=== PATIENT | female | born 1955 | race Caucasian/White ===

== ENCOUNTER 2020-08-17 11:59 | Emergency (ER) | payer MEDICARE, OTHER ==
[~2020-08-17] VITALS: Ht 165.1 cm; Wt 81.7 kg
[2020-08-17] MEDS ORDERED: ONDANSETRON ODT4 MG PO (12:18)
[2020-08-17] MEDS ORDERED: LEVOTHYROXINE112 MCG PO (12:18)
[2020-08-17] MEDS ORDERED: OMEPRAZOLE20 MG PO (12:18)
[2020-08-17] MEDS ORDERED: CLOBETASOL PROP15 GM TOP (12:18)
[2020-08-17] MEDS ORDERED: BUSPIRONE HCL10 MG PO (12:19)
[2020-08-17] MEDS ORDERED: TRAMADOL HCL50 MG PO (12:19)
[2020-08-17] MEDS ORDERED: VENLAFAXINE HCL75 MG PO (12:22)
[2020-08-17] MEDS ORDERED: TRAZODONE HCL50 MG PO (12:22)
[2020-08-17] MEDS ORDERED: BREO ELLIPTA 21 EACH IH (12:23)
[2020-08-17] MEDS ORDERED: INCRUSE ELLI62.5 MCG INH (12:24)
[2020-08-17] MEDS ORDERED: METOPROLOL SUCC50 MG PO (12:25)
[2020-08-17] MEDS ORDERED: TOPROL XL50 MG PO (12:25)
== END 2020-08-18 01:05 | disposition short-term general hospital (02) ==
LOC: ED 11:59
DX: R20.2 Paresthesia of skin (principal); R53.1 Weakness; J44.9 Chronic obstructive pulmonary disease, unspecified; K21.9 Gastro-esophageal reflux disease without esophagitis; E03.9 Hypothyroidism, unspecified; G47.00 Insomnia, unspecified; E66.9 Obesity, unspecified; F17.200 Nicotine dependence, unspecified, uncomplicated; Z88.2 Allergy status to sulfonamides; Z88.8 Allergy status to other drugs, medicaments and biological substances; Z79.899 Other long term (current) drug therapy
CPT/HCPCS: 70450; 72158; 80053; 82550; 83735; 85025; 85651; 99285-25; A9577; J2060; J2405; J7040

== ENCOUNTER 2021-04-09 12:04 | Emergency (ER) | payer MEDICARE, OTHER ==
[~2021-04-09] VITALS: Ht 165.1 cm; Wt 68.0 kg
[~2021-04-09 12:04] MED LIST: BREO ELLIPTA 21 EACH IH; BUSPIRONE HCL10 MG PO; CLOBETASOL PROP15 GM TOP; INCRUSE ELLI62.5 MCG INH; LEVOTHYROXINE112 MCG PO; METOPROLOL SUCC50 MG PO; OMEPRAZOLE20 MG PO; ONDANSETRON ODT4 MG PO; TOPROL XL50 MG PO; TRAMADOL HCL50 MG PO; TRAZODONE HCL50 MG PO; VENLAFAXINE HCL75 MG PO
== END 2021-04-09 17:05 | disposition home or self-care (01) ==
LOC: ED 12:04
DX: R11.2 Nausea with vomiting, unspecified (principal); J44.9 Chronic obstructive pulmonary disease, unspecified; K21.9 Gastro-esophageal reflux disease without esophagitis; E03.9 Hypothyroidism, unspecified; E66.9 Obesity, unspecified; F17.200 Nicotine dependence, unspecified, uncomplicated; Z88.2 Allergy status to sulfonamides; Z88.5 Allergy status to narcotic agent; Z79.899 Other long term (current) drug therapy
CPT/HCPCS: 80053; 80500; 81001; 83690; 83735; 85025; 96374; 96375; 96376; 99284-25; J2405; J2765; J7030; J7040

== ENCOUNTER 2021-07-20 12:51 | Inpatient (IN) | payer MEDICARE, OTHER ==
[~2021-07-20] VITALS: Ht 165.1 cm; Wt 55.2 kg
[~2021-07-20 12:51] MED LIST changes: -BREO ELLIPTA 21 EACH IH; +BREO ELLIPTA 21 EACH INH
--- OUTSIDE RECORDS SUMMARY | 2021-07-20 12:54 | XMS ---
PreManage Notification: BELLA EVASN Security Lockstitch Waistline Joiner Events No recent Security Events currently on file CRITERIA MET - [facility] - 3 Facilities in 90 Days - 6 ED Visits in 6 Months - [facility] - 2 Visits in 30 Days CARE PROVIDERS There are no care providers on record at this time. Marie has no Care Guidelines for this patient. EBrody VISIT COUNT (12 MO.) [address] [facility] TOTAL 7 NOTE: Visits indicate total known visits. ED/UCC VISIT TRACKING (12 MO.) 07/20/2021 12:[address] [facility] [place] TYPE: Emergency COMPLAINT: - UNABLE TO EAT/DRINK, N/V/D 07/17/2021 14:23 [facility] [place] TYPE: Emergency DIAGNOSES: - Essential (primary) hypertension - Dizziness and giddiness - Nausea - DIZZY 04/27/2021 15:44 [facility] TYPE: Emergency DIAGNOSES: - Chronic inflammatory demyelinating polyneuritis - Neurologic Problem - Fall 04/17/2021 12:30 [facility] [place] TYPE: Emergency DIAGNOSES: - Other visual disturbances - FAILURE TO THRIVE - Nausea with vomiting, unspecified 04/13/2021 09:59 [facility] [place] TYPE: Emergency DIAGNOSES: - Nausea with vomiting, unspecified - VOMITING DIZZY NOT EATING OR DRINKING 04/09/2021 12:06 [facility] [place] TYPE: Emergency COMPLAINT: - N/V, UNABLE TO EAT/DRINK DIAGNOSES: - Nausea with vomiting, unspecified - Other [place] [facility] ([facility] drug therapy - Allergy status to sulfonamides - Obesity, unspecified - Nicotine dependence, unspecified, uncomplicated - Allergy status to narcotic agent - Hypothyroidism, unspecified - Chronic obstructive pulmonary disease, unspecified - Gastro-esophageal reflux disease without esophagitis 08/17/2020 12:00 [facility] [place] TYPE: Emergency COMPLAINT: - ARMS/LEGS NUMBNESS DIAGNOSES: - Paresthesia of skin - Obesity, unspecified - Hypothyroidism, unspecified - Anesthesia of skin - Allergy status to other drugs, medicaments and biological substances - Gastro-esophageal reflux disease without esophagitis - Other [place] [facility] [place]current[facility] drug therapy - Insomnia, unspecified - Nicotine dependence, unspecified, uncomplicated - Chronic obstructive pulmonary disease, unspecified - Weakness - Allergy status to sulfonamides INPATIENT VISIT TRACKING (12 MO.) 08/18/2020 02:55 [facility] TYPE: Internal Medicine DIAGNOSES: - Personal history of other infectious and parasitic diseases - Anesthesia of skin - r/o guillian barre syndrome - Abnormal reflex - Guillain-[place] syndrome - Paresthesia of skin [email or web address]
[2021-07-20] MEDS ORDERED: LISINOPRIL10 MG PO (18:03)
[2021-07-20] MEDS ORDERED: VENLAFAXINE HCL75 M1 PO (18:03)
[2021-07-20] MEDS ORDERED: ONDANSETRON ODT4 MG SL (18:10)
--- NOTE | 2021-07-20 18:30 | NUR ---
REPORT RECEIVED FROM NIGHT RN AND PT. ARRIVED VIA STRETCHER. PT. IS ALERT AND DENIES PAIN AT THIS TIME. IV SITE WNL. PT. HAS FLAT AFFECT AND APPEARS CONFUSED WITH QUESTIONS AT TIMES. INTAKE COMPLETED ACCEPT FOR ASSESSMENT. MEDS ADMIN AND SAFETY DISCUSSED WITH PT. SHE WAS ASSISTED WITH CALLING HER FAMILY. LEFT RESTING WITH CALL LIGHT IN REACH.
[2021-07-20] MEDS ORDERED: VENTOLIN HFA18 GM INH (19:17)
[2021-07-20] MEDS ORDERED: SPIRIVA18 MCG INH (19:18)
[2021-07-20] MEDS ORDERED: PULMICORT0.5 MG/2 M (19:19)
[2021-07-20] MEDS ORDERED: PULMICORT0.5 MG/2 M INH (19:20)
[2021-07-20] MEDS ORDERED: IPRAT-ALBUT 0.5-3 ML INH (19:22)
--- NOTE | 2021-07-20 19:26 | NUR ---
medications reconciled using pharmacy records, PCP notes and patient interview. Patient has not been taking any meds due to dizziness/weakness and extreme cost of inhalers prescribed
--- NOTE | 2021-07-20 19:30 | NUR ---
SHIFT REPORT RECEIVED FROM CRISTINA HERNANDEZ. PT RESTING IN BED, SLEEPING. NO NEEDS AT THIS TIME. CALL LIGHT IN REACH.
--- NOTE | 2021-07-20 19:44 | NUR ---
RECEIVED CALL FROM DAUGHTER, EBEN TALBOT . GAVE UPDATE. SHE REQUESTS CONTACT FROM CASE MANAGEMENT ROLANDA TO MAKE ARRANGEMENTS FOR PT RELEASE SHE IS CONCERNED THAT THE PT MAY BE SENT HOME AND CANNOT CARE FOR HERSELF. MESSAGE LEFT ON CASEWORK PHONE.
--- NOTE | 2021-07-20 20:20 | NUR ---
IN TO ASSIST PT TO THE BSC, HEAVY 1PA PIVOT, PT NOTES DIZZYNESS WITH AMBULATION, VS AND I&Os COMPLETE, ICE WATER AND COFFEE PROVIDED TO PT, BED ALARM IS SET, NO FURTHER NEEDS AT THIS TIME
--- NOTE | 2021-07-20 21:00 | NUR ---
ASSESSMENT COMPLETED. PT CONFUSED. ORIENTED TO PERSON, PLACE, TIME. LUNGS CLEAR IN UPPER LOBES AND DIM IN LOWER LOBES. HEART TONES REGULAR. ABD SOFT, NONTENDER, BOWEL TONES ACTIVE. PT REPORTS NUMBNESS AND TINGLING IN HANDS AND FEET, PULSES INTACT. SKIN HAS SCATTERED BRUISING. SCHEDULED MED PROVIDED. PT HAS GREAT DIFFICULTY SWALLOWING PILLS, PT OFFERED OPTIONS FOR TAKING PILLS AND SHE STATES IT MAKES NO DIFFERENCE, EVALUATION REQUESTED IN [facility]. ICE WATER AND COFFEE PROVIDED, DRINKS WITHOUT ISSUE. NO OTHER NEEDS AT THIS TIME. CALL LIGHT IN REACH.
--- NOTE | 2021-07-20 23:14 | NUR ---
PT CALLS TO USE BSC. PROVIDED WITH FWW, 1PA. PT UNSTEADY. NO OTHER NEEDS. CALL LIGHT IN REACH.
--- NOTE | 2021-07-20 23:28 | NUR ---
PT REPORTS HEARTBURN , PRN MED PROVIDED. PT REQUESTS NICOTINE PATCH STAY ON TONIGHT. NO OTHER NEEDS. CALL LIGHT IN REACH.
--- NOTE | 2021-07-21 00:13 | NUR ---
PT RESTING IN BED, EYES CLOSED. RR EVEN, UNLABORED. BED ALARM ON, CALL LIGHT IN REACH.
--- NOTE | 2021-07-21 02:00 | NUR ---
ASSESSMENT, VS AND I&O COMPLETED. PT CONFUSED AND FORGETFUL. UP TO BSC AND BACK TO BED, 1PA FWW. LUNGS CLEAR IN ALL LOBES AND DIM IN LOWER LOBES. PT IS WEAK WITH TRANSFERS. IVs WNL, IV FLUIDS INFUSING PER ORDER. TEA PROVIDED. NO OTHER NEEDS. BED ALARM ON, CALL LIGHT IN REACH.
--- NOTE | 2021-07-21 02:15 | NUR ---
IN TO ASSIST PT TO THE BSC, HEAVY 1PA PIVOT, PT BACK TO BED, NO FURTHER NEEDS
--- NOTE | 2021-07-21 03:50 | NUR ---
IN TO ASSIST PT WITH COMMODE NEEDS, 1PA PIVOT, BACK TO BED, ADDED HOT WATER TO TO PTs TEA, NO FURTHER NEEDS AT THIS TIME
--- NOTE | 2021-07-21 04:56 | NUR ---
PT CALLS TO USE BSC, 1PA FWW, PROVIDED. VS AND I&O COMPLETED. NO OTHER NEEDS AT THIS TIME. CALL LIGHT IN REACH.
--- NOTE | 2021-07-21 05:40 | NUR ---
SCHEDULED MED PROVIDED. PT REPORTS 6/10 BACK AND LEGS ACHE, PRN PAIN MED PROVIDED. PT SWALLOWED CUT PILLS WELL WITH WATER. NO OTHER NEEDS. CALL LIGHT IN REACH.
--- NOTE | 2021-07-21 08:15 | NUR ---
REPORT RECEIVED FROM NIGHT RN AND PT. CARE RESUMED. PT. IS ALERT AND ORIENTED TO ALL. SHE REPORTS FEELING LESS CONFUSED. LFA IV REDDENED AND SLUGGISH TO FLUSH. REMOVED IV WNL. RAC IV WNL AND S.L. PT. REPORTS TOLERABLE BACK PAIN. PT. ASSISTED WITH AMBULATING WITH FWW TO THE COMMODE BUT COULD NOT VOID. ASSISTED BACK TO BED. DISCUSSED MEDS, SAFETY AND POC. LEFT RESTING WITH CALL LIGHT IN REACH.
--- NOTE | 2021-07-21 09:20 | NUR ---
ORTHOSTATIC VITALS COMPLETED AND PT. TOLERATED WELL. LEFT RESTING WITH CALL LIGHT IN REACH.
--- NOTE | 2021-07-21 09:58 | NUR ---
RECOCAMPO FROM ER STATING PATINETS DAUGHTER WOULD LIKE A CALL TO DISCUSS PLACEMENT OF THE PATIENT AT DISCHARGE. LM YI TREADWELL [phone].
--- NOTE | 2021-07-21 10:00 | NUR ---
RECVD CALL BACK FROM PATIENT PANCHO LOMAX RESIDES IN [place]. EBEN STATES THAT HER AND HER SIBLINGS ARE CONCERNED WITH THE PATIENT ABILITY TO RETURN TO HER HOME SAFELY AT THIS TIME. EBEN STATES THATS SINCE THE PATIENT NEUROLOGICAL ISSUES AROUSE THEY HAVE BEEN CONCERED ABOUT THE PATIENT ABILITY TO CARE FOR HERSELF. EBEN STATES THAT HER MOM HAS RECENTLY NOT BEEN EATING OR BEEN ABLE TO GET UP TO THE RESTROOM. EBEN STATES THEY HAVE DISCUSS PLCEMENT OR IN HOME CAREGIVING WITH THE PATIENT ON SEVERAL OCCASIONS, BUT THE PATIENT HAS DECLINE. THE PATIENT HAS AN UPCOMING APPOINTMENT AT THE [facility] STARTING ON 08/05/21 FOR FURTHER ASSESSMENT OF HER NEUROLICAL ISSUES. DISCUSSED WITH EBEN THAT THE PATIENT WILL BE EVALUATED BY MYSELF, PT AND OT TODAY TO DETERMINE HER LEVEL OF NEEDS. OPTIONS FOR PLACEMENT DICUSSED WHICH WILL BE DEPENDENT ON THE PATIENT ASSESSMENTS. I ALSO ADVISED EBEN THAT IT IS ULTIMATELY THE PATIENT DECISION TO ACCEPTING PLACEMENT OR DISCHARGING HOME. EBEN STATES THE FAMILY IS AWARE OF THIS, BUT STILL FEEL SHE IS UNSAFE AT HOME ALONE. PATIENT DAUGHTER KIRAN HAS ALSO OFFERED THAT THE PATIENT COME LIVE WITH HER IN [place], BUT THAT WAS ALSO DECLINED. I ADVISED EBEN THAT ONCE THE PATIENT HAS BEEN EVALUATED BY MYSELF AND PT/OT I WILL UPDATE HER.
--- NOTE | 2021-07-21 10:19 | NUR ---
PT. ASSISTED FROM BED TO THE CHAIR WITH FWW AND TOLERATED WELL. BROUGHT COFFEE AND BLANKETS. LEFT RESTING WITH CALL LIGHT IN REACH.
--- NOTE | 2021-07-21 10:20 | NUR ---
INTO TO ROOM TO ASSESS PATIENT. PATIENT SITTING UP IN CHAIR WATCHING TV. PATIENT STATES SHE LIVES ALONE IN [place], BUT DOES HAVE 3 DOGS. PATIENT STATES PRIOR TO HER RECENT EPISODE OF NUMBNESS IN HER FEET, HANDS AND FACE SHE WAS ABLE TO WALK WITH HER 4WWW. PATIENT STATES THAT AT ONE TIME SHE WAS ABLE TO AMBULATE WITH A CANE. PATIENT ADVISES ME THAT SHE HAS AN APPOINMENT WITH THE [facility] ER AND HOPING TO GET A CLEAR DIAGNOSIS. PATIENT STATES HER DAUGHTER EBEN LIVES IN [place], DAUGHTER KIRAN LIVE IN [place] AND SON SANJU LIVES IN [facility].PATIENT STATES SHE IS NORMALLY ABLE TO PREPARE FOOD FOR HERSELF, BUT DOES HAVE FRIEND WHO BRING HER FOOD WHEN SHE IS UNABLE. PATIENT ANSWERS THAT IF SHE WERE TO DISCHARGE TODAY SHE WOULD NOT FEEL SAFE ALONE AT HOME, BUT FEELS HER DAUGHTER KIRAN WOULD FLY UP TO STAY WITH HER. APPROCHED THE PATIENT ABOUT FUTURE PLACEMENT IF NEEDED, PATIENT ADVISES SHE IS ANXIOUS ABOUT MAKING HER TRIP TO THE [facility] ER AT THIS TIME. WILL ALLOW FOR PT/OT EVALUATIONS THEN WILL DISCUSS FURTHER DISCHARGE PLANNING NEEDS.
--- NOTE | 2021-07-21 13:30 | NUR ---
DISCUSSED PT EVALUATION WITH JUAN CARLOS SARABIA. SHE STATES THE PATIENT WOULD BENEFIT FROM SNF PLACEMENT, BUT KNOW THE PATIENT HAS DECLINED IN THE PAST. JUAN CARLOS PT STATES SHE BELIEVES THE PATIENT COULD DISCHARGE HOME IF FAMILY WERE ABLE TO CARE FOR HER. THIS RN INTO THE PATIENT ROOM AT THIS TIME. EXPLAINED TO THE PATIENT THAT HER DAUGHTERS FEEL THAT SHE SHOULD CONSIDER GOING TO A SKILLED FACILITY. I ALSO ADVISED THER THAT JUAN CARLOS PT ADVISED OF SNIF PLACEMENT UNLESS A CAREGIVER COULD BE OBTAINED. DISCUSSED PLACEMENT OF WBT AND REGENCY WITH PATIENT. PATIENT STATING SHE FEELS SHE NEEDS TO BE SEEN AT THE [facility] IN [place] AND SHE FEELS LIKE HER BEING PLACED WOULD INTERFERE. PATIENT GOES ON TO SAY THAT SHE FEELS SHE WILL BE ABLE TO MAKE A DECISION ABOUT HER FUTURE LIVING SITUATION ONCE SEEN AT THE [facility] AND HER NEUROLOGIST HAS ENCOURAGED HER TO GO. PATIENT DOES AGREE TO LOOK INTO HIRING A CAREGIVER SHE FEELS SHE MAY NEED ONE AT LEAST UNTIL SHE LEAVES FOR HER APPOINTMENT. PATIENT GOES ON TO STATES THAT SHE IS WAITING TO SPEAK WITH HER DAUGHTER KIRAN WHO SHE BELIEVES WILL COME TO ASSIST IN HER CARE. I ADVISED PATIENT THAT I WILL CHECK BACK WITH HER TO HEAR IF HER DAUGHTER IS ABLE TO HELP CARE FOR HER AT DISCHARGE.
--- NOTE | 2021-07-21 13:58 | NUR ---
PT ASSISTED BY THIS NURSE OFF OF THE [facility]. SHE VOIDED 600ML. WHILE PT. WAS STANDING UP SHE BECAME UNSTEADY AND DRIFTED INTO THIS NURSE. PT. ASSISTED WITH STEADYING HERSELF . AMBULATED TO THE CHAIR. PT. ATE APPROXIMATELY 10% OF HER LUNCH AND STATES "IT TASTES WEIRD". DENIES FURTHER NEEDS. LEFT RESTING WITH CALL LIGHT IN REACH.
--- NOTE | 2021-07-21 14:00 | NUR ---
CALLED TO SPEAK WITH PATIENTS DAUGHTER EBEN TO GIVE UPDATE REGARDING ONGOING CASE MANAGEMENT ASSESSMENT AND PT EVAL. PATIENT DAUGHTER KIRAN JOINS VIA CONFRENCE CALL. BOTH PATIENT DAUGHTER EXPRESSED CONCERNS WITH THE PATIENT DISCHARGE HOME SITING THAT THEY FEEL THE PATIENT IS UNSAFE DUE TO HER PHYSICAL, MENTAL AND DUE TO THE STATE OF THE HOME. KIRAN STATES SHE RECENTLY STAYED WITH HER MOTHER FOR ONE MONTH AND THAT THE PATIENT HOME IS "FILTHY." KIRAN STATES HER MOTHER HAS ANIMALS IN HER HOME WHICH ARE NOT BEING CARED FOR. BOTH EBEN AND KIRAN BELIEVE THAT IF THE PATIENT RETURNS TO HER HOME SHE WILL CONTINUE TO NOT EAT. KIRAN STATES THAT WHEN SHE WAS STAYING WITH HER MOTHER SHE HAD TO THREATEN AND FORCE HER TO EAT. BOTH DAUGHTERS CONFIRM THAT THE PATIENT HAS BEEN IN OTHER LOCAL HOSPITALS WHERE THIS SAME SCENERIO HAS TAKEN PLACE BEFORE. PATIENT PRESLEY STATES THAT THE PATIENT WILL OFTEN AGREE TO HIRE A GEOPHYSICAL PROSPECTING PERMIT AGENT CAREGIVER, BUT NEVER DOES. KIRAN STATES THAT SHE HAS OFFERED FOR THE PATIENT TO MOVE TO [place] WITH HER, BUT THE PATIENT DECLINES. AT THIS TIME BOTH DAUGHTERS ARE QUESTIONING WHAT CASE MANAGEMENT IS GOING TO DO TO ASSIST THEY FEEL THE PATIENT IS NOT SAFE FOR DISCHARGE. I ADVISED BOTH DAUGHTERS THAT I JUST SPOKE WITH THE PATIENT AND AGAIN SHE HAS DECLINED PLACEMENT EVEN FOR A BRIEF TIME. DURING MY DISCUSSION WITH THE PATIENT SHE DID AGREE TO HIRING CAREGIVING OF SOME TYPE SHE FEELS SHE AT LEAST NEEDS ASSISTANCE UNTIL SHE CAN BE SEEN AT THE [facility] IN [place]. BOTH DAUGHTER BECOME UPSET SAYING THAT THIS HAS ALL HAPPENED BEFORE AND THE PATIENT NEVER FOLLOWS THROUGH WITH OBTAINING A CAREGIVER. I ADVISED THE PATIENT DAUGHTERS THAT UNFORTUNATLY THE LAW IS VERY CLEAR THAT IF THE PATIENT IS ABLE TO SPEAK FOR HERSELF AND DECLINE PLACEMENT/ASSISTANCE AND FEELS SAFE RETURNING HOME SHE HAS THE RIGHT TO DO SO. I EXPLAIN TO THE DAUGHTER THAT IF THEY WOULD LIKE I CAN MAKE A REFERRAL TO APS REGARDING THE PATIENT LIVING SITUATION, PATIENT DAUGHTERS STATES THIS HAS ALREADY BEEN DONE IN THE PAST. THIS RN QUESTIONING THE PATIENT DAUGHTER REGARDING ANY PAST HISTORY OF DEPRESSION OR MENTAL HEALTH ISSUES THE PATIENTS SYMPTOMS INCREASED AFTER THE SUDDEN OF HER LAST YEAR. BOTH DAUGHTER AGREE THAT THE PATIENT HAS SUFFERED FROM DEPRESSION AND HAD ISSUES WITH ALCOHOL CONSUMPTIONS SINCE THEY WERE YOUNG. THIS RN SUGGESTS THAT THE FAMILY WORK WITH THE PATIENT TO SEEK COUNSELING. DAUGHTER STATE THEY HAVE ATTEMPTED TO HAVE THE PATIENT PSYCOLOGICALLY EVALUATED AT ANOTHER FACILITY, BUT WHEN THE PATIENT FOUND OUT THE PLAN, SHE DISCHARGED AMA. PATIENT DAUGHTER KIRAN ASKING IF THIS RN COULD HAVE HER EVALUATED AT THIS TIME. I EXPLAINED TO HER THAT WE ONLY SEEK MENTAL HEALTH EVALUATION IN THE [facility] CARE SETTING IF THE PATIENT IS SUICIDAL OR HOMICIDAL, WHICH THE PATIENT HAS NOT BEEN EITHER. KIRNA GOES ON TO STATES "WELL SHE THREATENED TO BLOW HER HEAD OFF A FEW WEEKS AGO, CAN'T YOU JUST USE THAT TO GET HER EVALUATED?" I EXPLAINED TO HER THAT THE PATIENT IS NOT MAKING IMMINENT THREAT TO HERSELF OR OTHER AT THIS TIME SO NO EVALUATION COULD BE DONE. I ADVISED THE PATIENTS DAUGHTERS THAT I WOULD AGAIN ATTEMPT TO SPEAK WITH THE PATIENT ABOUT PLACEMENT OR ATTEMPT TO ASSIST WITH FINDING A CAREGIVER. PATIENT DAUGHTER FEEL THE PATIENT WON'T FOLLOW THROUGH ON THIS SO SHE WILL NOT BE ABLE TO BE DISCHARGED. I ADVISED THEM THAT ONCE THERE IS NO ACUTE NEED FOR THE PATIENT TO BE IN THE HOSPITAL SHE WILL BE DISCHARGED OR MEDICARE WILL DECLINE FURTHER PAYMENT. I ADVISED EBEN THAT I WILL CALL HER WITH ANY UPDATES GOING FORWARD.
--- NOTE | 2021-07-21 14:54 | EKG ---
[facility] [address] [facility] [place], [place] [address] Signed Normal sinus rhythm Left anterior fascicular block Abnormal ECG No previous ECGs available Confirmed by MILA CANALES MD ([id number]) on 07/21/2021 2:54:27 PM Electronically Signed By: MILA CANALES MD 07/21/21 1454 PATIENT NAME: BELLA EVANS Electrocardiogram DATE OF : 55 PHYSICIAN: MILA CANALES MD REPORT #: [id number] REPORT IS CONFIDENTIAL AND NOT TO BE RELEASED WITHOUT AUTHORIZATION
--- NOTE | 2021-07-21 18:29 | NUR ---
PT. ASSISTED WITH AMBULATING WITH FWW TO THE [facility] AND TOLERATED WELL. VOIDED AND ASSISTED BACK TO BED. PT. HAD NOT EATEN DINNER AND STATED SHE WAS NOT HUNGRY. STEAM PRESS OPERATOR IN THE ROOM FOR VITALS.
--- NOTE | 2021-07-21 19:30 | NUR ---
SHIFT REPORT RECEIVED FROM CRISTINA HERNANDEZ. PT RESTING IN BED. ASSISTED TO BSC AND BACK TO BED. CALL LIGHT IN REACH.
--- NOTE | 2021-07-21 20:17 | NUR ---
ASSESSMENT, VS AND I&O COMPLETED. GCS 15, A &O X4 BUT FORGETFUL. LUNGS CLEAR, HEART TONES REGULAR. ABD SOFT, NONTENDER, BOWEL TONES ACTIVE. PT REPORTS CHRONIC NUMBNESS AND TINGLING IN HANDS AND FEET. MOTOR AND PULSES INTACT. IV WNL, IV FLUID INFUSING PER ORDER. PT DENIES PAIN AND NAUSEA. PT UP TO BSC AND BACK TO BED , 1PA WITH FWW. RT IN ROOM FOR TREATMENT.
--- NOTE | 2021-07-21 21:45 | NUR ---
IN TO ASSIST PT UP TO THE BSC, 1PA PIVOT, BACK TO BED, PT HAS QUESTIONS ABOUT POSSIBLE DISCHARGE, PROVIDED PT WITH THERAPUTIC COMMUNICATION, BED ALARM SET
--- NOTE | 2021-07-21 23:14 | NUR ---
PT RESTING IN BED, WATCHING TV. NO NEEDS AT THIS TIME. CALL LIGHT IN REACH.
--- NOTE | 2021-07-22 00:15 | NUR ---
PT STATES SHE HAS 8/10 BACK AND LEG PAIN, PRN PAIN MED PROVIDED. ICE WATER PROVIDED. NO OTHER NEEDS AT THIS TIME. CALL LIGHT IN REACH.
--- NOTE | 2021-07-22 02:37 | NUR ---
ASSESSMENT COMPLETED. IV WNL, IV FLUID INFUSING. GCS 15, A&O X4 BUT FORGETFUL. CHRONIC NUMBNESS AND TINGLING IN HANDS AND FEET. NO OTHER NEEDS AT THIS TIME. CALL LIGHT IN REACH.
--- NOTE | 2021-07-22 05:10 | NUR ---
IN TO GET VS, I&Os DONE
--- NOTE | 2021-07-22 05:32 | NUR ---
SCHEDULED MED PROVIDED. NO OTHER NEEDS. CALL LIGHT IN REACH.
--- NOTE | 2021-07-22 07:35 | NUR ---
REPORT RECEIVED FROM MARY ESCOBAR AND PT. CARE RESUMED. PT. IS ALERT AND ORIENTED TO ALL. WHEN ASKED IF SHE HAS ANY CONCERNS OR QUESTIONS ABOUT POSSIBLE DISCHARGE HOME TODAY, SHE STATED "MY KIDS WANT ME TO GO TO REHAB SO I'M GOING TO GO HOME FIRST AND GET MY STUFF, AND THEN GO THERE". PT. DENIES PAIN. 1PA WITH FWW TO THE BATHROOM AND VOIDED. SHE IS UNSTEADY ON HER FEET BUT WALKING FARTHER. RIGHT LEG DRAGS WITH WALKING. LUNGS CLEAR. IV WNL AND FLUSHES. DISCUSSED POC, SAFETY AND MEDS. PT. ASSISTED WITH ORDERING OATMEAL AND STATES SHE WILL TRY AND EAT MORE TODAY. LEFT RESTING IN THE CHAIR WITH CALL LIGHT IN REACH.
--- NOTE | 2021-07-22 11:02 | NUR ---
ROUNDING ON PT. SHE IS SLEEPING IN THE CHAIR. RESPIRATIONS EVEN AND UNLABORED. HER APPETITE IS IMPROVED THIS MORNING AND SHE HAS EATEN MOST OF HER BREAKFAST. LEFT RESTING WITH CALL LIGHT IN REACH.
--- NOTE | 2021-07-22 11:28 | NUR ---
PT. ASSISTED WITH FWW AND 1PA. TOLERATED WELL. DISCUSSED SHOWERING AND ASSISTED WITH PHONE. LEFT RESTING WITH CALL LIGHT IN REACH.
--- NOTE | 2021-07-22 11:55 | NUR ---
PT. CALLED WITH QUESTIONS ABOUT POSSIBLE DISCHARGE. ALL QUESTIONS ANSWERED AND PT. DENIES FURTHER NEEDS. LEFT RESTING WITH CALL LIGHT IN REACH.
--- NOTE | 2021-07-22 15:47 | NUR ---
PATIENT SAID SHE WOULD LIKE TO TAKE A SHOWER TOMORROW. GAVE HER A WASHED CLOTH TO WASH HER FACE AND ALSO HER TOOTH BRUSH AND TOOTHPASTE. ALSO GOT HER DINNER ORDERED AND ALSO HER BREAKFAST.
--- NOTE | 2021-07-22 17:31 | NUR ---
PT. ASSISTED WITH SETTING UP FOR DINNER IN THE CHAIR. DENIES FURTHER NEEDS. LEFT RESTING WITH CALL LIGHT IN REACH.
--- NOTE | 2021-07-22 19:30 | NUR ---
SHIFT REPORT RECEIVED FROM CRISTINA HERNANDEZ. PT RESTING IN BED, WATCHING TV. ICE WATER PROVIDED. NO OTHER NEEDS. CALL LIGHT IN REACH.
--- NOTE | 2021-07-22 20:32 | NUR ---
ASSESSMENT, VS AND I&O COMPLETED. GCS 15, A&O X4 BUT FORGETFUL. LUNGS CLEAR, HEART TONES REGULAR. ABD SOFT, NONTENDER, BOWEL TONES ACTIVE. CHRONIC NUMBNESS AND TINGLING IN ALL EXTREMITIES. IV WNL, CDI, FLUSHED WELL. PT DENIES PAIN AND NAUSEA. NO OTHER NEEDS AT THIS TIME. CALL LIGHT IN REACH.
--- NOTE | 2021-07-22 22:30 | NUR ---
PT RESTING IN BED, EYES CLOSED. RR EVEN, UNLABORED. CALL LIGHT IN REACH.
--- NOTE | 2021-07-23 | NUR ---
PT RESTING IN BED, EYES CLOSED. RR EVEN, UNLABORED. CALL LIGHT IN REACH.
--- NOTE | 2021-07-23 02:00 | NUR ---
PT RESTING IN BED, EYES CLOSED. RR EVEN, UNLABORED. CALL LIGHT IN REACH.
--- NOTE | 2021-07-23 04:00 | NUR ---
PT RESTING IN BED, EYES CLOSED. RR EVEN, UNLABORED. CALL LIGHT IN REACH.
--- NOTE | 2021-07-23 06:19 | NUR ---
ASSESSMENT, VS AND I&O COMPLETED. SCHEDULED MED PROVIDED. PT UP TO BR AND BACK TO BED, 1PA FWW. GCS 15, A&O X4 BUT FORGETFUL. IV WNL. LUNGS CLEAR, HEART TONES REGULAR. CHRONIC NUMBNESS AND TINGLING IN HANDS AND FEET NOTED. ABD SOFT, NONTENDER, BOWEL TONES ACTIVE. NO OTHER NEEDS AT THIS TIME. CALL LIGHT IN REACH.
--- NOTE | 2021-07-23 08:00 | NUR ---
REPORT RECEIVED FROM NIGHT RN AND PT. CARE RESUMED. SHE IS ALERT AND ORIENTED. DENIES PAIN AND IS MORE CONVERSATIONAL AND UPBEAT TODAY. LUNGS CLEAR THROUGHOUT. NICOTINE PATCH REMOVED AND NEW ONE APPLIED. RIGHT FOOT DROP AND WEAKNESS PRESENT BLE. PT. ASSISTED WITH ORDERING BREAKFAST. DISCUSSED POC AND SAFETY. LEFT RESTING WITH CALL LIGHT IN REACH.
--- NOTE | 2021-07-23 12:15 | NUR ---
ROUNDING ON PT. SHE IS IN THE CHAIR EATING LUNCH AND DENIES NEEDS AT THIS TIME. LEFT RESTING WITH CALL LIGHT IN REACH.
--- NOTE | 2021-07-23 16:28 | NUR ---
GOT PATIENT A CUP OF COFFEE WITH CREAM AND SUGAR IN IT. PATIENT IS NOW LAYING IN BED. WATCHING TV. SHE SAID SHE FEELS BETTER TAKING A SHOWER. PATIENT DID EVERYTHING EXCEPT WASH HER BACK. THAN PATIENT HELD ONTO HER WALKER WHILE I HELPED HER WASH HER BOTTOM. HELPED HER GET DRESSED. NEW GOWN,SOCKS NEW ATTEND. ORDERED HER DINNER.
--- NOTE | 2021-07-23 16:38 | NUR ---
ROUNDING ON PT. SHE IS RESTING IN BED AND TALKING ON THE PHONE. DENIES NEEDS AT THIS TIME.
--- NOTE | 2021-07-23 19:53 | NUR ---
REPORT RECEIVED FROM DAY SHIFT RN. PT LYING IN BED RESTING WITH EYES CLOSED. RESPIRATIONS EVEN. CALL LIGHT IN REACH.
--- NOTE | 2021-07-23 21:25 | NUR ---
V/S AND I&O'S DONE AND RECORDED. 2 PA WITH WALKER AND GAIT BELT TO THE BATHROOM AND BACK TO BED. MARY SARAVIA WAS WITH PATIENT.
--- NOTE | 2021-07-23 23:30 | NUR ---
PT AWAKE IN BED EATING CHIPS AND DRINKING WATER. HOB ELEVATED. DENIES NEEDS. BED ALARM FOR SAFETY. CALL LIGHT IN REACH.
--- NOTE | 2021-07-24 01:20 | NUR ---
PT RESTING IN BED WITH EYES CLOSED. RESPIRATIONS EVEN. CALL LIGHT IN REACH.
--- NOTE | 2021-07-24 04:30 | NUR ---
PT RESTING WITH EYES CLOSED. HOB ELEVATED. RESPIRATIONS EVEN. BED ALARM FOR SAFETY.
--- NOTE | 2021-07-24 06:32 | NUR ---
VS AND I&O COMPLETE. NO SWALLOWING ISSUES NOTED. PT DENIES PAIN OR NAUSEA. NO FURTHER NEEDS. BED ALARM FOR SAFETY. CALL LIGHT IN REACH.
--- NOTE | 2021-07-24 08:27 | NUR ---
JERRICA HODGES AT [facility] TO DISCUSS BED AVAILABILITY AND TO DISCUSS PATIENTS APPOINTMENT WITH THE [facility].
--- NOTE | 2021-07-24 08:44 | NUR ---
PATIENT IN BATHROOM FOR BM, UP TO CHAIR FOR BREAKFAST. RT IN TO DO TREATMENT.
--- NOTE | 2021-07-24 09:25 | NUR ---
KAMARIVD CALL FROM [facility] AT [facility], THEY CURRENTLY DO HOT HAVE ANY BEDS AVAILABLE AT THIS TIME. PER DR. VALENTINE NOTE AND AM MEETING PATIENT HAS DECIDED TO DISCHARGE TO A SNIF WHEN STABLE. WILL DISCUSS FURTHER OPTIONS WITH PATIENT AFTER CHECK BED AVAILABILITIES.
--- NOTE | 2021-07-24 10:00 | NUR ---
RECVD CALL FROM PATIENT DAUGHTER EBEN, DISCUSSED THAT PATIENT HAS AGREED TO PLACEMENT PER THE STAFF. ADVISED EBEN THAT [facility] HAS NO AVAILABILITY AT THIS TIME AND RAJ GARCIA RN WILL DISCUSS W[facility] AND [facility] AT THE [facility] [place]. EBEN STATES SHE FEELS HER MOTHER WILL WANT TO STAY IN [place] IT IS CLOSE TO HER HOME. DISCUSSED THE REFERRAL AND ADMISSION PROCESS WELL TIMELINE. PATIENT DAUGHTER IS THANKFUL FOR THE ASSISTANCE. I ADVISED EBEN I WILL CALL HER WITH ANY UPDATED ON PLACEMENT SOON POSSIBLE.
--- NOTE | 2021-07-24 10:10 | NUR ---
UP WORKING WITH OT/PT, UP TO BR, VOIDED SMALL AMOUNT PLUE WAS INCONTIENNT OF URINE, HAD BM, BACK TO BED, TOLERATED WELL, C/O MILD ABD PAIN, 'ANXIETY OVER HAVING TO GO SOMEPLACE", REASSURED, TRYING TO GET A HOLD OF FAMILY VIA CELL PHONE. COMOFRTABLE, DENIES NEED FOR PAIN MED OFR ABD DISCOMOFRT. PLEASANT. FLAT AFFECT. USES CALL LIGHT AND TOLERATING DIET WELL
--- NOTE | 2021-07-24 10:27 | NUR ---
IN BED, FLAT AFFECT, C/O ABD AND R FLANK PAIN, AND DENTAL PAIN FROM ILL FITTING DENTURES. TOLERATING LIQUIDS WELL
--- NOTE | 2021-07-24 10:45 | NUR ---
INTO PATIENT ROOM. PATIENT LAYING IN BED ON LEFT SIDE, HOLDING HER RIGHT FLANK AND C/O PAIN. PATIENT STATES HER PAIN CAME ON SUDDENLY. PATIENT STATES SHE DID HAVE A BM THIS MORNING AND DOES NOT GENERALLY DOES NOT STRUGGLE WITH CONSTIPATION. I ADVISED PATIENT THIS RN WOULD NOTIFY HER PRIMARY RN OF ISSUE. EXPLAINED TO PATIENT THAT [facility] DOES NOT HAVE BED AVAILABILITY AT THIS TIME. PLACEMENT OPTIONS OF [facility] AND [facility] AT THE [facility] GIVEN. PATIENT IS UPSET SHE THOUGHT SHE WOULD BE GOING TO [facility]. THIS RN EXPLAINED THAT BED AVAILABILITY HAS BEEN LIMITED. PATIENT AGRRES TO ATTEMPT PLACEMENT AT [facility]. CHART FAXED TO [facility] FOR REVIEW.
--- NOTE | 2021-07-24 10:49 | NUR ---
CM IN ROOM TALKING TO PT ABOUT PLACEMENT OPTIONS
--- NOTE | 2021-07-24 12:36 | NUR ---
Dr Pinedo in room examining pt.
--- NOTE | 2021-07-24 13:15 | NUR ---
PER STAFF AT [facility] PATIENT HAS BEEN ACCEPTED. DISCHARGE ARRANGED FOR 07/25/21 @ 10:[address] CANALES AND RUFINO RN NOTIFIED.
--- NOTE | 2021-07-24 13:30 | NUR ---
INTO PATIENT ROOM TO ADVISE HER THAT OF ACCEPTANCE TO [facility]. PATIENT ASKING MANY QUESTIONS ABOUT PLACEMENT, ALL QUESTIONS ANSWER. PATIENT UNDERSTANDS MEDICARE GUIDELINES FOR REHAB PLACEMENT. DISCUSSED THAT PER THE [facility] STAFF PATIENT IS OKAY TO LEAVE FOR HER APPOINTMENT AT THE [facility] IN [place]. PATIENT STATES SHE FEELS NERVOUS ABOUT TRANSFERRING TO A NEW PLACE, PATIENT COMFORTED. AT THE END OF CONVERSATION PATIENT APPEARS MORE RELAXED AND ACCEPTING OF PLACEMENT TO [facility].
--- NOTE | 2021-07-24 13:37 | NUR ---
PATIENT IN BED AT THIS TIME. PATIENT ASKING ABOUT DISCHARGE PLAN AND REQUESTING TO TALK TO [facility] MANAGMENT, CASE MANAGMENT NOTIFIED. VITALS AND I&O'S CHARTED. CALL LIGHT IN REACH. NO FURTHER NEEDS AT THIS TIME.
--- NOTE | 2021-07-24 14:35 | NUR ---
SPOKE WITH PATIENT DAUGHTER EBEN TO UPDATE ABOUT PLACEMENT. EBEN IS THANKFUL AND AGREEABLE TO PLACEMENT.
--- NOTE | 2021-07-24 14:54 | NUR ---
AWAKE, WATCHNG TV, NO FURTHER C/O PAIN, USES CALL LIGHT, TOLERATING FLUIDS WELL
[2021-07-24] MEDS ORDERED: IPRAT-ALBUT 0.5-3 ML INH (16:36)
[2021-07-24] MEDS ORDERED: NICOTINE1 EAC2 TD (16:37)
[2021-07-24] MEDS ORDERED: NICOTINE LOZENGE4 MG BUCCAL (16:37)
[2021-07-24] MEDS ORDERED: ACETAMINOPHEN500 MG PO (16:37)
--- NOTE | 2021-07-24 17:01 | NUR ---
Pt has slept off and on. Was very anxious and irritable most of this shift due to need to go to SNF for further therapy. Multiple calls with daugther and CM. much calmer at this time, pt is to be DC to [place] in am. Pt on room air. lungs clear slight dim at bases, occ cough at times. Worked with PT/OT. SBA unsteady gait but much improved, SBA/1PA. tolerating diet well, no emesis. SL patent. Forgetful at times and repeats, follows instructions. Continues to reinofrce POC.
--- NOTE | 2021-07-24 18:44 | NUR ---
On room air, tolerated diet and liquids. no further c/o pain. no emesis. turns and repositions self in bed. calmer, forgetful at times, pleasant
--- NOTE | 2021-07-24 19:30 | NUR ---
REPORT RECEIVED FROM DAY SHIFT RN. PT LYING IN BED TALKING ON PHONE. DENIES NEEDS. WHITE BOARD UPDATED. CALL LIGHT IN REACH. BED ALARM FOR SAFETY.
--- NOTE | 2021-07-24 21:45 | NUR ---
EVENING ASSESSMENT COMPLETE. SCHEDULED MEDS ADMINISTERED PER EMAR. PT DENIES PAIN OR NAUSEA. 1PA WITH FWW TO BR TO VOID 200 ML YELLOW URINE. GAIT WEAK. BACK TO BED, ALDAIR WELL. VS AND I&O COMPLETE. PT EXPRESS ANXIETY ABOUT DISCHARGE GOING TO SNF. QUESTIONS ANSWERED. COMFORT PROVIDED. TOUR LEADER IN ROOM TO PROVIDE ADDITIONAL INFORMATION AND SUPPORT. PT DENIES FURTHER NEEDS AT THIS TIME. CALL LIGHT IN REACH.
--- NOTE | 2021-07-24 23:16 | NUR ---
PT SITTING UP IN BED EATING CHIPS AND WATCHING TV. PRN FOR ANXIETY ADMIN PER EMAR. NO FURTHER NEEDS AT THIS TIME. CALL LIGHT IN REACH. BED ALARM FOR SAFETY.
--- NOTE | 2021-07-25 00:49 | NUR ---
PT RESTING IN BED WITH EYES CLOSED. RESPIRATIONS EVEN. BED ALARM ON. CALL LIGHT IN REACH.
--- NOTE | 2021-07-25 03:41 | NUR ---
PT RESTING IN BED LYING ON RIGHT SIDE. RESPIRATIONS EVEN. BED ALARM FOR SAFETY.
--- NOTE | 2021-07-25 06:16 | NUR ---
VS AND I&O COMPLETE. PT UP TO BR TO VOID WITH FWW AND 1PA. ABLE TO DO OWN TOM CARE. PT DENIES FEELING DIZZY. GAIT UNSTEADY. BACK TO BED, ALDAIR WELL. DENIES PAIN OR NAUSEA. NO FURTHER NEEDS. CALL LIGHT IN REACH.
--- NOTE | 2021-07-25 07:16 | NUR ---
AWAKE, ALERT AND ORIENTED, ANXIOUS OVER POSSIBLE DC. REASSURED. SL PATENT RAC ON ROOM AIR, LUNGS CLEAR BILAT. NO C/O PAIN . CONTINU [facility]
--- NOTE | 2021-07-25 07:30 | NUR ---
Faxed orders, [facility], PT notes, DC summary to [facility]. Spoke with staff to determine how pt can transport. Staff feel pt can go by taxi with assist in and out of cab. Texted [facility] and asked if pt can be assisted out of the cab and they agree. Called and scheduled cab to pick pt up at 0945 as they would like this pt there by 10:00.
--- NOTE | 2021-07-25 09:32 | NUR ---
PT UP TO BR WITH PT, 1PA/FWW, UNSTEADY GAIT, VOIDED, BACK TO BED, IV SITE DC'D PT IS BEING DC. COOPERATIVE WITH DC INSTRUCTIONS
--- NOTE | 2021-07-25 10:04 | NUR ---
0945 - pt dc to [facility] via [employer] pt alert and oriented, looking forward to going there, anxious over her belongings at her apartment. reassured 1000- report given to Hue HERNANDEZ at [facility].
== END 2021-07-25 09:45 | DRG 641 ==
LOC: ED 12:51 → MS 12:53
PROVIDERS: ADMIT Internal Medicine; ATTEND Internal Medicine
DX: E87.6 Hypokalemia (principal); G61.0 Guillain-Barre syndrome; Z68.1 Body mass index [BMI] 19.9 or less, adult; Z20.822 Contact with and (suspected) exposure to COVID-19; E86.0 Dehydration; R53.1 Weakness; R42 Dizziness and giddiness; T50.Z15A Adverse effect of immunoglobulin, initial encounter; G60.8 Other hereditary and idiopathic neuropathies; J44.9 Chronic obstructive pulmonary disease, unspecified; F41.9 Anxiety disorder, unspecified; F32.A Depression, unspecified; K21.9 Gastro-esophageal reflux disease without esophagitis; G47.00 Insomnia, unspecified; E03.9 Hypothyroidism, unspecified; E66.9 Obesity, unspecified; M79.7 Fibromyalgia; Z90.49 Acquired absence of other specified parts of digestive tract; Z98.890 Other specified postprocedural states; Z88.2 Allergy status to sulfonamides; Z87.891 Personal history of nicotine dependence; Z88.5 Allergy status to narcotic agent; Z79.899 Other long term (current) drug therapy
CPT/HCPCS: 36415; 80048; 80053; 82306; 83690; 83735; 84484; 85025; 92610; 93005; 93010; 94640; 94760; 96374; 96375; 96376; 97110; 97112; 97116; 97162; 97166; 97535; 99285-25; A9270; C9113; C9803; G0378; G0480; J3411; J3475; J3480; J7030; J7121; U0003